=== PATIENT | female | born 1945 | race Caucasian/White ===

== ENCOUNTER 2023-09-12 08:48 | Day surgery (SDC) | payer MEDICARE, BC ==
[2023-09-11 16:35] LABS: BASOPHILS % (AUTO) 0.4 % (0-1); EOSINOPHILS # (AUTO) 0.1 X10'3 (0-0.9); HEMATOCRIT 46.6 % (35.0-45.0); HEMOGLOBIN 15.8 g/dl (12.0-16.0); LYMPHOCYTES # (AUTO) 1.9 X10'3 (1.1-4.8); LYMPHOCYTES % (AUTO) 22.8 % (21-51); MEAN CORPUSCULAR HGB CONC 33.9 g/dL (33.0-36.5); MEAN CORPUSCULAR VOLUME 94.6 FL (78-98); MEAN PLATELET VOLUME 9.8 FL (7.4-10.4); MONOCYTES # (AUTO) 0.7 X10'3 (0-0.9); MONOCYTES % (AUTO) 8.1 % (2-12); NEUTROPHILS # (AUTO) 5.8 X10'3 (1.8-7.7); NEUTROPHILS % (AUTO) 67.7 % (42-75); PLATELET COUNT 182 X10'3 (140-440); RED BLOOD COUNT 4.92 X10'6 (4.20-5.60); RED CELL DISTRIBUTION WIDTH 14.5 % (11.5-14.5); WHITE BLOOD COUNT 8.5 X10'3 (4.5-11.0)
[2023-09-11 16:40] LABS: ALBUMIN 3.6 G/DL (3.4-5.0); ANION GAP 10 (8-16); BLOOD UREA NITROGEN 22 MG/DL (7-18); BUN/CREATININE RATIO 28.6 (10.0-20.0); CALCIUM 9.7 MG/DL (8.5-10.1); CHLORIDE 105 MMOL/L (99-107); CREATININE 0.77 MG/DL (0.40-0.90); GLUCOSE 140 MG/DL (70-104); POTASSIUM 3.9 MMOL/L (3.5-5.1); SODIUM 139 MMOL/L (135-145); TOTAL CARBON DIOXIDE 24.5 MMOL/L (24-32); eGFR 73 ML/MIN
[2023-09-11 17:25] LABS: APTT 29 SECONDS (22-32); PROTHROMBIN TIME 10.7 SECONDS (9.0-12.0)
[2023-09-12] VITALS (11 sets, daily range): BP systolic 141–190; BP diastolic 64–89; PULSE 50–65; RESP 16; TEMP 97.8; O2SAT 92–97
[~2023-09-12] VITALS: Ht 154.9 cm; Wt 73.8 kg
[2023-09-12] MEDS ORDERED: LORazepam 0.5 MG tablet PO PRN (09:15)
[2023-09-12] MEDS ORDERED: normal saline 1,000 ML IV SCH (09:15)
[2023-09-12] MEDS ORDERED: diphenhydrAMINE 25mg capsule PO PRN (09:15)
[2023-09-12] MEDS ORDERED: CHOL100046 PO (09:55)
[2023-09-12] MEDS ORDERED: UBID50TA3 PO (09:55)
[2023-09-12] MEDS ORDERED: CALC-336 PO (09:55)
[2023-09-12] MEDS ORDERED: MULT-1085 PO (09:55)
[2023-09-12] MEDS ORDERED: TURM500C4 PO (09:55)
[2023-09-12] MEDS ORDERED: [UNRECOGNIZED DRUG - CODE] PO (09:55)
[2023-09-12] MEDS ORDERED: KEN0.1O TOP (09:55)
[2023-09-12] MEDS ORDERED: BIOT10004 PO (09:55)
[2023-09-12] MEDS ORDERED: METO-395 PO (09:55)
[2023-09-12] MEDS ORDERED: LUTEIN PO (09:55)
[2023-09-12] MEDS ORDERED: MAGN400C PO (09:55)
[2023-09-12] MEDS ORDERED: QUER500C PO (09:55)
[2023-09-12] MEDS ORDERED: ASPI-611 PO (09:55)
[2023-09-12] MEDS ORDERED: DORZ10DR19 OP (09:55)
[2023-09-12] MEDS ORDERED: NITR50CA PO (09:55)
[2023-09-12] MEDS ORDERED: ATOR10TA70 PO (09:55)
[2023-09-12] MEDS ORDERED: ZINC220T3 PO (09:55)
[2023-09-12] MEDS ORDERED: BRIM10DR3 LEFTEYE (09:55)
[2023-09-12] MEDS ORDERED: LOSA100T58 PO (09:55)
[2023-09-12] MEDS ORDERED: verapamil 2.5 mg/ml inj IV ONE (10:14)
[2023-09-12] MEDS ORDERED: LIDOcaine 1% (10mg/ml) 2ml vial ONE (10:14)
[2023-09-12] MEDS ORDERED: iohexol 350 MG/ML 50ML vial IV ONE (10:14)
[2023-09-12] MEDS ORDERED: midazolam 1 mg/ML 2ml injection ONE (10:14)
[2023-09-12] MEDS ORDERED: fentaNYL/PF 50MCG/1 ML 2ML syringe ONE (10:14)
[2023-09-12] MEDS ORDERED: iohexol 350MG/ML 100ml bottle IV ONE (10:15)
[2023-09-12] MEDS ORDERED: heparin 1,000unit/ml 10ml vial 10 ML ONE (10:15)
[2023-09-12] MEDS ORDERED: nitroGLYCERIN 500mcg/5mL D5W 5 ML IV ONE (10:29)
[2023-09-12 11:43] LABS: ISTAT HGB ART 14.6 g/dl (12.0-16.0); ISTAT Hct ART 43 %PCV (35-45); ISTAT O2 SATURATION ARTERIAL 92 % (95-98); ISTAT SOURCE ART
[2023-09-12] MEDS ORDERED: normal saline 1000ml 1,000 ML IV SCH (12:55)
[2023-09-12 14:23] LABS: ISTAT HGB MIX 14.3 g/dl (12.0-16.0); ISTAT Hct MIX 42 %PCV (35-45); ISTAT O2 SATURATION MIX VENOUS 66 % (60-80); ISTAT SOURCE VEN
== END 2023-09-12 16:00 | disposition home or self-care (01) ==
LOC: SSTAY O 08:48
PROVIDERS: ATTEND Internal Medicine Cardiovascular Disease
DX: I35.0 Nonrheumatic aortic (valve) stenosis (principal); I25.10 Atherosclerotic heart disease of native coronary artery without angina pectoris; I10 Essential (primary) hypertension; E78.5 Hyperlipidemia, unspecified; I47.10 Supraventricular tachycardia, unspecified; Z79.82 Long term (current) use of aspirin; Z79.899 Other long term (current) drug therapy; Z98.41 Cataract extraction status, right eye; Z98.42 Cataract extraction status, left eye; Z98.890 Other specified postprocedural states; Z88.2 Allergy status to sulfonamides; Z88.8 Allergy status to other drugs, medicaments and biological substances; Z79.01 Long term (current) use of anticoagulants
CPT/HCPCS: 36415; 76937; 80048; 82803; 85014; 85025; 85610; 85730; 93005; 93460; 99152; 99153; J1644; J2250; J3010; J3490; J7030; Q0163; Q9967; A6258; A6402; C1725; C1751; C1769; C1894

== ENCOUNTER 2023-11-02 11:13 | Outpatient (CLI) | payer MEDICARE, BC ==
[~2023-11-02 11:13] MED LIST: ASPI-611 PO; ATOR10TA70 PO; BIOT10004 PO; BRIM10DR3 LEFTEYE; CALC-336 PO; CHOL100046 PO; DORZ10DR19 OP; IODIXANOL 320 MG/ML INFUS..BTL 100ML IV ONE; KEN0.1O TOP; LOSA100T58 PO; LUTEIN PO; MAGN400C PO; METO-395 PO; MULT-1085 PO; NITR50CA PO; QUER500C PO; TURM500C4 PO; UBID50TA3 PO; ZINC220T3 PO; [UNRECOGNIZED DRUG - CODE] PO
[2023-11-02 11:54] LABS: BASOPHILS % (AUTO) 0.3 % (0-1); EOSINOPHILS # (AUTO) 0.1 X10'3 (0-0.9); EOSINOPHILS % (AUTO) 1.2 % (0-6); HEMATOCRIT 46.5 % (35.0-45.0); HEMOGLOBIN 15.6 g/dl (12.0-16.0); LYMPHOCYTES # (AUTO) 1.6 X10'3 (1.1-4.8); LYMPHOCYTES % (AUTO) 19.9 % (21-51); MEAN CORPUSCULAR HEMOGLOBIN 32.1 PG (27.0-31.0); MEAN CORPUSCULAR HGB CONC 33.7 g/dL (33.0-36.5); MEAN CORPUSCULAR VOLUME 95.5 FL (78-98); MEAN PLATELET VOLUME 9.3 FL (7.4-10.4); MONOCYTES # (AUTO) 0.8 X10'3 (0-0.9); MONOCYTES % (AUTO) 10.3 % (2-12); NEUTROPHILS # (AUTO) 5.4 X10'3 (1.8-7.7); NEUTROPHILS % (AUTO) 68.3 % (42-75); PLATELET COUNT 171 X10'3 (140-440); RED BLOOD COUNT 4.87 X10'6 (4.20-5.60); RED CELL DISTRIBUTION WIDTH 14.2 % (11.5-14.5)
[2023-11-02 12:08] LABS: APTT 28 SECONDS (22-32); PROTHROMBIN TIME 10.4 SECONDS (9.0-12.0)
[2023-11-02 12:16] LABS: ALANINE AMINOTRANSFERASE 33 U/L (12-78); ALBUMIN 3.6 G/DL (3.4-5.0); ALBUMIN/GLOBULIN RATIO 0.9 (1.1-1.5); ALKALINE PHOSPHATASE 160 IU/L (46-116); ANION GAP 12 (8-16); ASPARTATE AMINO TRANSFERASE 21 U/L (10-37); BILIRUBIN,TOTAL 0.6 MG/DL (0.1-1.0); BLOOD UREA NITROGEN 18 MG/DL (7-18); BUN/CREATININE RATIO 21.7 (10.0-20.0); CALCIUM 9.5 MG/DL (8.5-10.1); CHLORIDE 107 MMOL/L (99-107); CREATININE 0.83 MG/DL (0.40-0.90); GLUCOSE 144 MG/DL (70-104); POTASSIUM 4.1 MMOL/L (3.5-5.1); PRO BRAIN NATRIURETIC PEPTIDE 492 PG/ML (0-450); SODIUM 143 MMOL/L (135-145); TOTAL CARBON DIOXIDE 23.7 MMOL/L (24-32); TOTAL PROTEIN 7.4 G/DL (6.4-8.2); eGFR 66 ML/MIN
== END 2023-11-02 23:59 | disposition home or self-care (01) ==
LOC: VAS 11:13
PROVIDERS: ATTEND Internal Medicine Cardiovascular Disease
DX: I71.21 Aneurysm of the ascending aorta, without rupture (principal); I35.0 Nonrheumatic aortic (valve) stenosis; R06.02 Shortness of breath; I65.29 Occlusion and stenosis of unspecified carotid artery; J98.11 Atelectasis; J90 Pleural effusion, not elsewhere classified; I70.0 Atherosclerosis of aorta; N28.1 Cyst of kidney, acquired; M47.815 Spondylosis without myelopathy or radiculopathy, thoracolumbar region
CPT/HCPCS: 36415; 71046; 71275; 74174; 75572; 80053; 83880; 85025; 85610; 85730; 93880; Q9967

== ENCOUNTER → 2023-11-22 | Outpatient (CLI) | payer MEDICARE, BC ==
[~2023-11-22] VITALS: Ht 154.9 cm; Wt 74.2 kg
[2023-11-22 17:53] VITALS: BP 194/91; PULSE 74; RESP 20; TEMP 98.4; O2SAT 96
== END | disposition home or self-care (01) ==
LOC: TAVR 14:59
PROVIDERS: ATTEND Internal Medicine Cardiovascular Disease
DX: I35.0 Nonrheumatic aortic (valve) stenosis (principal); R06.02 Shortness of breath; I65.29 Occlusion and stenosis of unspecified carotid artery
CPT/HCPCS: Q9967

== ENCOUNTER 2024-01-03 10:52 | Outpatient (CLI) | payer MEDICARE, BC ==
[~2024-01-03 10:52] MED LIST changes: +BRIM10DR3 EACHEYE; -BRIM10DR3 LEFTEYE; +DORZ10DR19 EACHEYE; -DORZ10DR19 OP; -IODIXANOL 320 MG/ML INFUS..BTL 100ML IV ONE
[2024-01-03 12:16] LABS: HEMOGLOBIN A1C 6.1 % (4.5-6.2)
[2024-01-03 12:27] LABS: CHOL/HDL RATIO 3.2 (0.00-4.99); CHOLESTEROL 140 MG/DL (0-200); HDL CHOLESTEROL 44 MG/DL (35-60); LDL CHOLESTEROL 88 MG/DL (50-100); THYROID STIMULATING HORMONE 1.29 ulU/ml (0.34-4.50); TRIGLYCERIDES 64 MG/DL (20-135)
[2024-01-07 14:26] LABS: CREATININE, URINE SEE COMMENTS
[2024-01-07 14:28] LABS: MICROALB/CRT, RATIO SEE COMMENTS
[2024-01-07 14:30] LABS: MICROALBUMIN,U,RANDOM SEE COMMENTS
== END 2024-01-03 23:59 | disposition home or self-care (01) ==
LOC: LAB 10:52
PROVIDERS: ATTEND Family Medicine
DX: Z13.1 Encounter for screening for diabetes mellitus (principal); Z13.29 Encounter for screening for other suspected endocrine disorder; Z13.220 Encounter for screening for lipoid disorders
CPT/HCPCS: 36415; 80061; 82043; 82570; 83036; 84443